=== PATIENT | female | born 1975 | race Caucasian/White ===

== ENCOUNTER 2024-07-01 11:09 | Emergency (ER) | payer OTHER, SELFPAY ==
--- NOTE | ~2024-07-01 | XR_ITS ---
EXAMINATION: XR CHEST CLINICAL INFORMATION: Coughing. Pneumonia? COMPARISON: None available. TECHNIQUE: Frontal view of the chest was obtained. FINDINGS: No significant abnormality is noted involving the heart, lungs, mediastinum, bony thorax or soft tissues. XR/XR chest 1V IMPRESSION: Unremarkable examination. Electronically signed by: Rome Burr MD 07/01/2024 03:07 PM [facility]
[2024-07-01 11:36] VITALS: BP 127/69; PULSE 67; RESP 16; TEMP 35.9; O2SAT 97; BMI 42.3
--- NOTE | 2024-07-01 11:44 | ED_ITS ---
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 Diarrhea has persisted and pt has reportedly had 4 bowel movements since being in the ED today;no blood reported in stool. Lack of appetite x1 day but able to keep fluids down. Nothing has made it better; pt tried OTC Imodium for diarrhea with no relief. No triggers that have made sx worse. No recent changes to medications, no sick contacts, no hx of present illness Onset (ago): day(s) Location: abdomen Radiation: non-radiation Pain Consistency: constant Relieving factors: none Exacerbating factors: none Associated symptoms: cough, fever/chills, loss of appetite, nausea/vomiting and weakness Treatments prior to arrival: other (Imodium ) Related Data Previous Rx's ?Medication ?Instructions ?Recorded dicyclomine 20 mg tablet 20 mg PO BID PRN diarrhea #7 tabs 07/01/24 Allergies Allergy/AdvReac Type Severity Reaction Status Date / Time No Known Allergies Allergy Verified 07/01/24 11:43 Review of Systems 2 Review of Systems: Neuro: alert and oriented. HEENT: Denies headache. Denies eye pain, erythema, discharge, visual changes. Denies ear pain, discharge, changes to hearing. Denies nasal congestion/discharge. Denies throat discomfort, difficulty swallowing. Cardiac: Reports chest pain. Denies palpitations. Pulmonary: Reports cough. Denies difficulty breathing, wheezing. Abdominal: reports RLQ abdominal pain, nausea, diarrhea. Denies constipation. Yes all other systems are reviewed and are negative Constitutional: Constitutional: Reports chills, Reports fatigue, Reports lethargy, Reports poor appetite and Reports weakness Eyes: Eyes: Reports as per HPI and Reports no additional eye complaints ENT: Reports system reviewed and no additional complaints, except as documented, Reports as per HPI and Reports Normal hearing present Cardiovascular: Cardiovascular: Reports as per HPI, Reports no additional cardiovascular complaints and Reports chest pain Respiratory: Respiratory: Reports as per HPI, Reports no additional respiratory complaints and Reports cough Gastrointestinal: Gastrointestinal: Reports as per HPI, Reports no additional gastrointestinal complaints, Reports abdominal pain, Reports change in bowel habits, Reports tenesmus, Reports diarrhea and Reports nausea Genitourinary: Genitourinary: Reports no additional female genitourinary complaints Musculoskeletal: Musculoskeletal: Reports no additional musculoskeletal complaints Integumentary/Breasts: Skin/Breast: Reports system reviewed and no additional complaints, except as docu and Reports as per HPI Neurologic: Reports system reviewed and no additional complaints, except as documented, Reports as per HPI, Reports Normal hearing present, Reports Abnormal speech present and Reports weakness Psychiatric: Psychiatric: Reports no additional psychiatric complaints Endocrine: Endocrine: Reports no additional endocrine complaints and Reports fatigue PMFSH Social History Social History Advance Directives: No Advance Directives Information Provided: No Do you have a plan to hurt others: No Plan Physical Exam ED Vital Signs: Vital Signs - 24 hr 07/01/24 11:36 07/01/24 20:35 07/01/24 22:51 Temperature 96.6 F L 97.7 F 97.7 F Pulse Rate 67 72 72 Respiratory Rate 16 20 20 Blood Pressure 127/69 122/84 122/84 Pulse Oximetry 97 97 97 Oxygen Delivery Method Room Air Room Air Room Air BMI result Body Mass Index 42.3 Const General: cooperative, healthy appearing, no acute distress, alert, awake and tired appearing Nutritional Appearance: average body habitus and well nourished Orientation/consciousness: oriented to person, oriented to place and oriented to time Limitations: no limitations HENMT Head: Yes normal to inspection, Yes normocephalic and Yes atraumatic Ears: hearing grossly normal bilaterally and external ears normal General nose exam: Normal external nose present and Normal nares present Face and sinus: Yes normal facial exam and Yes face symmetric Mouth: Normal oral and palatal mucosa present and lip normal Eyes General: appearance normal, both eyes and all related structures Periorbital: periorbital findings normal Eyelids: Yes eyelids normal Conjunctivae: conjunctivae normal Sclerae: sclerae normal Pupils: Equal, round and reactive pupils present Neck Neck: Yes normal visual inspection Resp Effort & Inspection: normal respiratory effort and able to speak in complete sentences Auscultation: clear to auscultation bilaterally Cardio Rate: regular rate Rhythm: regular rhythm GI Inspection: Yes normal to inspection Palpation (GI): Soft to palpation and Tenderness to palpation present (GI) Auscultation: Hyperactive bowel sounds present Skin General skin exam: no rashes or lesions noted Neuro General: oriented to person, oriented to place and oriented to time Cranial nerves: Yes Equal, round and reactive pupils present and Yes Normal hearing present Cognition (Neuro): normal cognition Speech: Abnormal speech present Extrem General: Yes normal to inspection and Yes full ROM Course Course Course Narrative: RME: 49-year-old female presents to ED for dehydration. Patient states multiple episodes of diarrhea also coughing with yellow phlegm and night sweats and chills. Patient states she lives alone no one else at home sick. Patient denies any chest pain or shortness of breath. Labs chest x-ray SARs strep ordered Medications Administered Discontinued Medications Generic Name Dose Route Start Last Admin Trade Name Freq PRN Reason Stop Dose Admin Dicyclomine HCl 20 mg 07/01/24 21:29 07/01/24 22:07 Dicyclomine Hcl 10 Mg Capsule PO 07/01/24 21:30 20 mg ONCE ONE Administration Ondansetron HCl 4 mg 07/01/24 21:29 07/01/24 22:02 Ondansetron Odt 4 Mg Tab.Rapdis TRANSLINGU 07/01/24 21:30 4 mg ONCE ONE Administration Medical Decision Making Medical Decision Making [facility] Narrative: I Crystal Hammond PA-C have personally assessed and manage the patient,Kathy PEARSON observed in helped to formulate his documentation 49 year old female seen in the ED for concerns regarding diarrhea, nausea, weakness, RLQ pain, and cough for 4 days. Diarrhea has persisted and pt has reportedly had 4 bowel movements since being in the ED today;no blood reported in stool. Lack of appetite x1 day but able to keep fluids down. Nothing has made it better; pt tried OTC Imodium for diarrhea with no relief. No triggers that have made sx worse. No recent changes to medications, no sick contacts, no hx of present illness DDx: 1. Gastroenteritis; consider given GI symptoms and progressive weakness 2. Inflammatory Bowel Disease; unlikely due to lack of trigger (such as stress). Consider due to diarrhea/bowel habit changes 3. Salmonella Infection; consider due to nausea, abdominal pain, diarrhea 4. Appendicitis; likely due to RLQ pain that is constant. Consider , may do CT 5. Diverticulitis; unlikely as presentation is generally LLQ. Consider due to change in bowel habits and abdominal pain 6. Flu/Covid/SRV; consider due to GI symptoms, cough, and weakness Plan - Antiemetic: due to nausea x4 days - Anti-diarrheal: due to continued diarrhea x4 days and no relief with OTC medication - Chest X-Ray: assess for underlying pulmonary pathology such as infection/inflammation given persistent cough and symptoms - CT scan of abdomen with contrast to assess for underlying obstruction or infectious process due to RLQ pain with associated GI sx. - CBC: assess for underlying hematology pathology or infectious process - CMP: assess for underlying metabolic pathology such as electrolyte abnormalities - UA: to assess for urinary tract infection - Covid/Flu/RSV nasal swab: to assess for covid, flu, or RSV per Crystal Hammond PA-C patient's abdominal exam is benign, this is likely viral gastroenteritis, she does not require imaging. she has concurrent bronchospasm, we will send with meds, Screening labs including a chest x-ray were obtained, will give symptomatic care I have independently reviewed the following tests: Labs: No leukocytosis, not anemic, viral panel, strep screen negative Chest x-ray: XR/XR chest 1V IMPRESSION: Unremarkable examination. Electronically signed by: Rome Burr MD 07/01/2024 03:07 PM [facility] Differential Diagnosis 1. gastroenteritis 2. inflammatory bowel disease 3. salmonella infection 4. appendicitis 5. diveriticulitis 6. flu/covid/rsv Lab Data 07/01/24 11:54 07/01/24 11:54 Labs: Lab Results 07/01/24 Range/Units 11:54 WBC 6.6 (4.8-10.8) X10*3/uL RBC 4.82 (4.20-5.50) X10*6/uL Hgb 14.6 (12.0-16.0) g/dl Hct 42.5 (37.0-47.0) % MCV 88.2 (80.0-98.0) fL MCH 30.3 (27.0-33.0) pg MCHC 34.4 (31.0-35.0) g/dl RDW 12.0 (11.0-16.0) % Plt Count 266 (160-400) X10*3/uL MPV 10.3 (9.4-12.3) fL Immature Gran % (Auto) 0.2 (0.0-0.4) % Neut % (Auto) 61.2 (45-73) % Lymph % (Auto) 30.2 (20-40) % [place] % (Auto) 6.1 (2-11) % Eos % (Auto) 1.7 (0-4) % Baso % (Auto) 0.6 (0-2) % Lymph # (Auto) 2.0 (1.2-4.9) X10*3/uL [place] # (Auto) 0.4 (0.1-1.2) X10*3/uL Eos # (Auto) 0.1 (0.0-0.4) X10*3/uL Baso # (Auto) 0.0 (0.0-0.2) X10*3/uL Abs Immat Gran (auto) 0.01 (0.00-0.03) X10*3/uL Absolute Neuts (auto) 4.0 (2.0-8.3) x10*3/uL Absolute Nucleated RBC 0.000 (0.0-0.012) X10*3/uL Nucleated RBC % (auto) 0.0 (0.0-0.2) /100WBC Sodium 140 (135-145) mmol/L Potassium 3.5 (3.3-5.1) mmol/L Chloride 107 (96-108) mmol/L Carbon Dioxide 25 (22-29) mmol/L Anion Gap 12 (12-20) BUN 11 (9-16) mg/dL Creatinine 0.84 (0.5-1.4) mg/dL Estim Creat Clear Calc 95.5 Estimated GFR > 60 Random Glucose 99 (60-115) mg/dL Calcium 9.2 (8.4-10.2) mg/dL Total Bilirubin 0.5 (0.0-1.0) mg/dL AST 57 H (5-31) U/L ALT 75 H (0-31) U/L Alkaline Phosphatase 101 (39-117) U/L Total Protein 7.9 (6.5-8.0) g/dL Albumin 4.3 (3.5-5.0) g/dL Beta HCG, Quant < 2 mIU/mL Influenza Type A (PCR) NEGATIVE (Negative) Influenza Type B (PCR) NEGATIVE (Negative) RSV RNA Qual (PCR) NEGATIVE (Negative) SARS-CoV-2 RNA (RT-PCR) NEGATIVE (Negative) S. pyogenes GrpA ROSALES Negative (Negative) Discharge Plan Discharge Clinical Impression: Viral syndrome, Gastroenteritis, Bronchospasm Patient Disposition: Home, Self-Care Instructions: Gastroenteritis (ED), Viral Syndrome (ED), Bronchospasm (ED) Additional Instructions: All of your symptoms are viral related. All screening labs were normal including the viral panel, you were screened for influenza, RSV and COVID. The chest x-ray was clear you do not have a pneumonia. See home care instructions. Use the dicyclomine as needed for diarrhea and abdominal cramping. You can use your home nebulizer for the bronchospasm type cough that you have. Follow up with your primary care provider as needed. Prescriptions: New dicyclomine 20 mg tablet 20 mg PO BID PRN (Reason: diarrhea) Qty: 7 0RF Interventions: ED Discharge Assessment Last Done: 07/01/24 22:51 Discharge Date/Time: 07/01/24 22:52 Print Language: Japanese
[2024-07-01 11:59] LABS: MANUAL DIFF FLAG NO
[2024-07-01 12:05] LABS: Basophils Percent Auto 0.6 % (0-2); Eosinophils Absolute Auto 0.1 X10*3/uL (0.0-0.4); Eosinophils Percent Auto 1.7 % (0-4); Hematocrit 42.5 % (37.0-47.0); Hemoglobin 14.6 g/dl (12.0-16.0); Imm Gran Abs Auto 0.01 X10*3/uL (0.00-0.03); Imm Gran Pct Auto 0.2 % (0.0-0.4); Lymphocytes Percent Auto 30.2 % (20-40); Mean Corpuscular HGB Conc 34.4 g/dl (31.0-35.0); Mean Corpuscular Hemoglobin 30.3 pg (27.0-33.0); Mean Corpuscular Volume 88.2 fL (80.0-98.0); Mean Platelet Volume 10.3 fL (9.4-12.3); Monocytes Absolute Auto 0.4 X10*3/uL (0.1-1.2); Monocytes Percent Auto 6.1 % (2-11); Neutrophils Percent Auto 61.2 % (45-73); Platelet Count 266 X10*3/uL (160-400); Red Blood Count 4.82 X10*6/uL (4.20-5.50); White Blood Count 6.6 X10*3/uL (4.8-10.8)
[2024-07-01 12:13] LABS: IDNOW Serial# 08D9AD1C; Strep A Nucleic Acid Negative (Negative)
[2024-07-01 12:30] LABS: Alanine Aminotransferase 75 U/L (0-31); Albumin Level 4.3 g/dL (3.5-5.0); Alkaline Phosphatase 101 U/L (39-117); Anion Gap 12 (12-20); Aspartate Amino Transferase 57 U/L (5-31); Bilirubin Total 0.5 mg/dL (0.0-1.0); Blood Urea Nitrogen 11 mg/dL (9-16); Calcium 9.2 mg/dL (8.4-10.2); Carbon Dioxide 25 mmol/L (22-29); Chloride 107 mmol/L (96-108); Creatinine Clr Calc Pharmacy 95.5; Estimated Glomerular Filt Rate > 60; Glucose Random 99 mg/dL (60-115); Potassium 3.5 mmol/L (3.3-5.1); Sodium 140 mmol/L (135-145); Total Protein 7.9 g/dL (6.5-8.0)
[2024-07-01 12:32] LABS: HCG Quantitative < 2 mIU/mL
[2024-07-01 12:38] LABS: Influenza A PCR NEGATIVE (Negative); Influenza B PCR NEGATIVE (Negative); Resp Syncy Virus RNA Qual PCR NEGATIVE (Negative); SARS COV2 PCR INHOUSE NEGATIVE (Negative)
[2024-07-01 20:35] VITALS: BP 122/84; PULSE 72; RESP 20; TEMP 36.5; O2SAT 97
[2024-07-01] MEDS: Ondansetron ODT 4 MG TAB.RAPDIS TRANSLINGU (22:02)
[2024-07-01] MEDS: Dicyclomine HCl 10 MG CAPSULE 20 MG PO (22:07)
[2024-07-01 22:51] VITALS: BP 122/84; PULSE 72; RESP 20; TEMP 36.5; O2SAT 97
== END 2024-07-01 22:52 | disposition home or self-care (01) ==
PROVIDERS: Physician Assistant; Emergency Provider Emergency Medicine Emergency Medical Services
DX: B34.9 Viral infection, unspecified (principal); K52.9 Noninfective gastroenteritis and colitis, unspecified; J98.01 Acute bronchospasm; Z03.818 Encounter for observation for suspected exposure to other biological agents ruled out
CPT/HCPCS: 0241U; 36415; 71045; 80053; 84702; 85025; 87651; 99283